=== PATIENT | female | born 1965 | race Hispanic/Latino ===

== ENCOUNTER 2017-09-14 22:12 | Emergency (ER) | payer BC ==
[~2017-09-14 22:12] MED LIST: ISOVUE-370 76%-LOCM 1 ML ONE
[2017-09-14 22:53] LABS: Hemoglobin 14.1 g/dL (12.0-16.0); Mean Corpuscular HGB CONC 35.9 g/dL (32.0-36.0); Mean Corpuscular Hemoglobin 31.8 pg (27.0-31.0); Mean Corpuscular Volume 88.7 fl (81.0-99.0); Mean Platelet Volume 7.7 fL (7.4-10.4); Platelet Count 211 thou/uL (130-400); RBC Distribution Width 11.4 % (11.5-14.5); Red Blood Cell (RBC) Count 4.42 mill/uL (4.20-5.40); White Blood Cell (WBC) Count 7.6 thou/uL (4.8-10.8)
[2017-09-14 22:59] LABS: ALT (SGPT) 35 U/L (8-55); AST (SGOT) 18 U/L (5-34); Albumin 4.2 g/dL (3.5-5.0); Alkaline Phosphatase 123 U/L (40-150); Anion Gap 15 mmol/L (10-20); BUN (Urea Nitrogen) 13 mg/dL (7.0-18.7); Bilirubin, Total 0.4 mg/dL (0.2-1.2); Calc. Creatinine Clearance 0 mL/min (70-130); Carbon Dioxide 23 mmol/L (22-29); Chloride 103 mmol/L (98-107); Estimated GFR-MDRD 83; Globulin 2.9 g/dL (2.4-3.5); Glucose 271 mg/dL (70-105); Potassium 3.5 mmol/L (3.5-5.1); Protein, Total 7.1 g/dL (6.0-8.3); Sodium 137 mmol/L (136-145)
[2017-09-14 23:10] LABS: Band 1 % (5-11); Lymphocytes 60 % (21-51); MDiff Complete? YES; Monocytes 1 % (0-10); Neutrophil 38 % (42-75); PLT Morphology Comment Appears Adequate; RBC Morphology Normal
[2017-09-14 23:10] LABS: CKMB 1.4 ng/mL (0-6.6); Troponin I Less than 0.010 ng/mL (< 0.028)
--- NOTE | 2017-09-14 23:52 | RAD ---
PORTABLE AP CHEST X-RAY 09/14/17 HISTORY: Chest pain, shortness of breath for several weeks. History of asthma. COMPARISON: 07/09/15. FINDINGS: The cardiac silhouette and pulmonary vasculature are within normal limits. The lungs remain clear. An chor screw overlies the left humeral head. There is mild resorption of the distal left clavicle. IMPRESSION: No acute cardiopulmonary process. POS: [facility]
[2017-09-15] MEDS ORDERED: Lorazepam 2 MG/ML VIAL ONE (00:20)
--- NOTE | 2017-09-15 07:14 | CT ---
CT ANGIOGRAM THORAX WITH IV CONTRAST AND 3D RECONSTRUCTIONS: Date: 09/14/17 HISTORY: Chest pain and shortness of breath for several weeks. History of asthma. FINDINGS: There is suboptimal timing of the contrast bolus, but no definite filling defects are seen in the lou tral or segmental pulmonary arteries. Thoracic aorta is normal in caliber without evidence of an aortic dissection. Mediastinal structures have a normal CT appearance. The lungs are clear. There is diminished attenuation of the liver relative to the spleen suggesting fatty infiltration. Re mainder of the upper abdomen has a normal CT appearance. IMPRESSION: 1. No CT evidence of a pulmonary embolus. 2. Fatty infiltration of the liver. POS: [facility]
--- NOTE | 2017-10-22 14:30 | EKG ---
Test Reason : Blood Pressure : / mmHG Vent. Rate : 084 BPM Atrial Rate : 084 BPM P-R Int : 138 ms QRS Dur : 082 ms QT Int : 376 ms P-R-T Axes : 031 -12 015 degrees QTc Int : 444 ms Normal sinus rhythm Low voltage QRS Borderline ECG Reconfirmed by MIKKI RIVERA ([id number]), loan expeditor ELVIS SAHU ([id number]) on 10/22/2017 2:30:23 PM Referred By: Confirmed By:MIKKI RIVERA
== END 2017-09-15 01:25 | disposition home or self-care (01) ==
LOC: ERS 22:12
DX: F43.0 Acute stress reaction (principal); E11.9 Type 2 diabetes mellitus without complications; E78.5 Hyperlipidemia, unspecified; J45.909 Unspecified asthma, uncomplicated
CPT/HCPCS: 36415; 71045; 71275; 80053; 82553; 83690; 83880; 84484; 85025; 85379; 93005; 94760; 96374; J2060

== ENCOUNTER 2018-03-09 15:01 | Emergency (ER) | payer BC, SELFPAY ==
[2018-03-09 15:27] LABS: Bilirubin Negative (Negative); Blood, Urine Negative (Negative); Clarity CLEAR (Clear); Glucose, Urine (Dipstick) >=1000 mg/dL (Negative); Leukocyte Negative (Negative); Nitrite Negative (Negative); Protein, Urine (Dipstick) Trace mg/dL (Neg-Trace); Specific Gravity, Urine 1.037 (1.002-1.036); Urobilinogen 0.2 mg/dL (0.2-1.0); pH, Urine 5.5 (5.0-9.0)
[2018-03-09 15:35] LABS: Bacteria/HPF None Seen HPF (None Seen); Hyaline Casts/LPF 4-6 HYALINE CAST LPF (0-3 Hyaline); Pathc Cast-AUWi Flag 0.72 (0-2.49); Renal Epithelial None Seen HPF (0-3); Transitional Epithelial NONE SEEN HPF (0-3)
[2018-03-09 15:44] LABS: Pregnancy Test - Urine (BHCG) Negative (Negative); Pregu Control Background? CLEAR/WHITE (CLR/WHITE); Pregu Control Bar Appear? YES (CONTROL BAR); Specific Gravity 1.037 (1.002-1.036)
[2018-03-11 21:57] LABS: Chlamydia by PCR Not Detected (NotDetected); GC by PCR Not Detected (NotDetected)
== END 2018-03-09 16:59 | disposition home or self-care (01) ==
LOC: ERS 15:01
DX: N39.0 Urinary tract infection, site not specified (principal); E11.9 Type 2 diabetes mellitus without complications; E78.5 Hyperlipidemia, unspecified; J45.909 Unspecified asthma, uncomplicated; F41.9 Anxiety disorder, unspecified; F32.9 Major depressive disorder, single episode, unspecified
CPT/HCPCS: 81003; 81025; 87086; 87480; 87491; 87510; 87591; 87660; 99283

== ENCOUNTER 2018-09-13 21:29 | Emergency (ER) | payer OTHER, SELFPAY ==
[2018-09-13] MEDS ORDERED: Lidocaine 1% PF 5 ML VIAL ONE (22:02)
[2018-09-13] MEDS ORDERED: Morphine 10 MG/ML VIAL ONE (22:02)
== END 2018-09-13 23:43 | disposition home or self-care (01) ==
LOC: ERS 21:29
DX: L02.211 Cutaneous abscess of abdominal wall (principal); L03.311 Cellulitis of abdominal wall; E11.9 Type 2 diabetes mellitus without complications; E78.5 Hyperlipidemia, unspecified; J45.909 Unspecified asthma, uncomplicated; F41.9 Anxiety disorder, unspecified; F32.9 Major depressive disorder, single episode, unspecified; Z79.899 Other long term (current) drug therapy; Z79.84 Long term (current) use of oral hypoglycemic drugs
CPT/HCPCS: 10061; 96372; J2001; J2270